=== PATIENT | female | born 1970 | race Caucasian/White ===

== ENCOUNTER 2018-04-23 21:45 | Emergency (ER) | payer OTHER, SELFPAY ==
[2018-04-23 21:50] VITALS: BP 101/41; PULSE 60; RESP 15; TEMP 36.6; O2SAT 98; BMI 26.6
--- NOTE | 2018-04-23 22:18 | DI.CT.S_ITS ---
PROCEDURE: CT ABDOMEN PELVIS W CON INDICATIONS: severe RLQ pain, appy? TECHNIQUE: After the administration of intravenous contrast, 5 mm thick sections acquired from the diaphragm to the symphysis. 5 mm coronal and sagittal reformats were acquired. For radiation dose reduction, the following was used: automated exposure control, adjustment of mA and/or kV according to patient size. COMPARISON: None. FINDINGS: Image quality: Excellent. ABDOMEN: Lung bases: Lung bases are clear. Heart size is normal. Solid organs: Liver is normal in size and enhancement. Gallbladder is normal. Biliary system is non dilated. Pancreas enhances normally. Spleen is normal in size and enhancement. No adrenal nodules. Kidneys demonstrate normal size and enhancement, without hydronephrosis. Peritoneum and bowel: Bowel loops demonstrate normal wall thickness and caliber. Normal appendix. No free fluid or air. Nodes and vessels: No retroperitoneal or mesenteric adenopathy by size criteria. Aorta and inferior vena cava are normal in size. Miscellaneous: No ventral hernias. PELVIS: Genitourinary: Retroverted uterus containing an IUD. Additionally, there is a round enhancing 2 cm mass along the right uterine body consistent with fibroids. A peripherally enhancing 2 cm nodule seen in the right adnexa surrounded by small amount of fluid, likely ruptured right ovarian corpus luteum cyst. The left ovary was not well seen. Miscellaneous: No inguinal hernias or adenopathy. Bones: No suspicious bony lesions. No vertebral body compression fractures. Severe degenerative disc and moderate posterior endplate spurring at the L5-S1 level. IMPRESSION: 1. Probable right ovarian corpus luteum cyst rupture. 2. Retroverted uterus containing an IUD and fibroid change. 3. Normal appendix. 4. Preliminary results are consistent with interpretation. Dictated by: Juliane Quinones M.D. on 04/24/2018 at 7:55 Approved by: Juliane Quinones M.D. on 04/24/2018 at 8:04
[2018-04-23] MEDS: HYDROMORPHONE 1 MG INJ IV (22:31)
[2018-04-23] MEDS: ONDANSETRON 4 MG/2 ML INJ IV (22:31)
[2018-04-23] MEDS: SODIUM CHLORIDE 0.9% 1,000 ML 1000 ML IV (22:32)
[2018-04-23 22:33] LABS: Add Manual Diff / Slide Review NO; Basophils Absolute Auto 100 /uL (0-100); Basophils Percent Auto 1.2 % (0-2); Eosinophils Absolute Auto 200 /uL (0-450); Eosinophils Percent Auto 2.8 % (2-4); Hematocrit 39.4 % (36-46); Hemoglobin 13.3 g/dL (12.0-16.0); Lymphocytes Absolute Auto 2400 /uL (1100-4500); Lymphocytes Percent Auto 33.7 % (25-40); Mean Corpuscular HGB Conc 33.8 % (30-36); Mean Corpuscular Hemoglobin 29.8 PG (26-34); Mean Corpuscular Volume 88.2 fL (80-100); Monocytes Absolute Auto 700 /uL (0-900); Monocytes Percent Auto 10.1 % (3-14); Neutrophils Absolute Auto 3800 /uL (1500-7000); Neutrophils Percent Auto 52.2 % (50-75); Platelet Count 222 X10^3/uL (150-400); Red Blood Cell Count 4.46 X10^6/uL (4.0-5.2); Red Cell Distribution Width 13.2 % (11.6-14.8); White Blood Cell Count 7.2 X10^3/uL (4.5-11.0)
[2018-04-23 22:45] LABS: Alanine Aminotransferase 32 IU/L (9-52); Albumin Globulin Ratio 1.3 (1.0-2.8); Alkaline Phosphatase 87 U/L (38-126); Aspartate Aminotransferase 19 IU/L (14-36); BUN Creatinine Ratio 27.1 (6-22); Bilirubin Total 0.2 mg/dL (0.2-1.3); Blood Urea Nitrogen 19 mg/dL (7-17); Calcium 9.2 mg/dL (8.4-10.2); Carbon Dioxide 25 mmol/L (22-32); Chloride 105 mmol/L (98-107); Estimated Glomerular Filt Rate > 60.0 mL/min (>60); Globulin 3.1 g/dL (1.7-4.1); Glucose 93 mg/dL (70-100); HEMOLYSIS < 15 (0-50); Lipase 112 U/L (23-300); Potassium 4.2 mmol/L (3.4-5.1); Sodium 138 mmol/L (137-145); Total Protein 7.1 g/dL (6.3-8.2)
[2018-04-23 22:47] VITALS: BP 107/59; PULSE 65; RESP 16; O2SAT 94
--- NOTE | 2018-04-23 23:22 | DI.US.S_ITS ---
PROCEDURE: US PELVIC COMPLETE INDICATIONS: ABNORMAL RIGHT OVARY ON CT TECHNIQUE: Real-time scanning was performed of the pelvic organs, with image documentation. Additional endovaginal scanning was necessary due to incomplete visualization of the adnexal and endometrial structures by transabdominal scanning. COMPARISON: [facility], CT, CT ABDOMEN PELVIS W CON, 04/23/2018, 22:24. FINDINGS: Transabdominal scanning: Limited scanning through the kidneys shows no hydronephrosis. No pathologic free abdominal or pelvic fluid. Endovaginal scanning: Uterus: Uterus is normal in size at 9.1 x 5.4 x 6.7 cm. The endometrium measures 3.3 mm in combined thickness. Intrauterine device is appropriately positioned. There is a 2.1 x 1.9 x 2.0 cm right anterior intramural uterine fibroid. Ovaries: Right adnexa measures 3.9 x 1.8 x 1.8 cm. There is a 1.8 x 1.3 x 1.5 complex cyst in the right adnexa may represent an involuting follicle. No vascular flow is associated with the right adnexal cyst. Left adnexa is not visualized and cannot be evaluated. IMPRESSION: 1. Small uterine fibroid. 2. Intrauterine device properly positioned. 3. 1.8 x 1.3 x 1.5 cm partially collapsed right adnexal cyst. 4. Left adnexa not visualized and cannot be evaluated. Dictated by: Darya Tovar MD, PhD on 04/24/2018 at 7:46 Approved by: Darya Tovar MD, PhD on 04/24/2018 at 7:49
--- NOTE | 2018-04-23 23:38 | PC.NURSE ---
Pt feeling much more relaxed,completely pain free at this time.
[2018-04-24] MEDS: HYDROCODONE/ACET 5/325 PREPACK 1 BOTTLE MISC (00:33)
[2018-04-24 00:34] VITALS: BP 104/52; PULSE 59; O2SAT 97
--- NOTE | 2018-04-24 02:41 | ED_ITS ---
HPI - Abdominal Pain General Chief Complaint: Abdominal Pain Stated Complaint: rlq abdominal pain Time Seen by Provider: 04/23/18 21:50 Source: patient and family Mode of arrival: ambulatory Limitations: no limitations History of Present Illness HPI narrative: 47-year-old female nonsmoker with a recent diagnosis of left bundle branch block presents with right lower quadrant pain worsening over the course of the day. She states it started with generalized abdominal discomfort and is settled in severe right quadrant pain which is worse with motion and improves with rest. She denies fever, chills nor nausea or vomiting. She denies any radiation of the pain nor history of the same. She denies any vaginal blee ding or discharge and states her last menstrual period was 2 weeks ago. She denies any injury. Related Data Home Medications Medication Instructions Recorded Confirmed CA PANTOTHENATE/FOLIC ACID/VIT 1 tab PO Q DAY #0 04/06/11 (MULTIVITAMIN) HYDROCODONE/ACET (HYDROCODONE 1 tab PO Q6HP #0 04/06/11 BITARTRATE-ACETAMINOPHEN) [ADDERALL] 20 mg PO Q DAY #0 04/06/11 methocarbamol 500 mg PO PRN #1 06/07/12 Previous Rx's Medication Instructions Recorded sumatriptan succinate [Imitrex] 100 mg PO PRN #30 04/14/11 Allergies Allergy/AdvReac Type Severity Reaction Status Date / Time ciprofloxacin [CIPROFLOXACIN] Allergy Unknown Verified 04/23/18 22:01 minocycline [MINOCYCLINE] Allergy Unknown Verified 04/23/18 22:01 Sulfa (Sulfonamide Allergy Unknown Verified 04/23/18 22:01 Antibiotics) [SULFA (SULFONAMIDE ANTIBIOTICS)] tetracycline [TETRACYCLINE] Allergy Unknown Verified 04/23/18 22:01 Review of Systems Constitutional Denies chills, Denies fever(s), Denies lethargy and Denies weakness Eyes Denies change in vision, Denies eye discharge, Denies irritation and Denies loss of vision ENT Ears, Nose, Mouth, and Throat: Denies change in voice, Denies neck pain and Denies sore throat Cardiovascular Denies chest pain, Denies irregular heart rhythm, Denies lightheadedness, Denies palpitations, Denies dyspnea, Denies dyspnea on exertion and Denies orthopnea Respiratory Denies cough, Denies dyspnea, Denies dyspnea on exertion and Denies wheezing Gastrointestinal Gastrointestinal: Reports abdominal pain, Denies change in bowel habits, Denies diarrhea, Denies nausea and Denies vomiting Genitourinary Denies hematuria, Denies flank pain, Denies urinary incontinence and Denies urinary urgency Musculoskeletal Denies neck pain Integumentary/Breasts Denies pruritus, Denies erythema, Denies rash and Denies wounds Neurologic Denies confusion, Denies loss of vision and Denies weakness Psychiatric Denies anxiety, Denies confusion, Denies depression, Denies homicidal ideation and Denies suicidal ideation Endocrine Denies palpitations Hematologic/Lymphatic Denies easy bruising Allergic/Immunologic Denies wheezing PFSH Surgical History History of knee surgery (Resolved) History of third molar tooth extraction Status post breast reduction (~1991) Social History Smoking Status: Never smoker Social History Smoking Status: Never smoker Exam Narrative Exam Narrative: GENERAL: T 47-year-old female appears younger than stated age in obviously quite uncomfortable, lying on her side with knees pulled her chest HEAD: Atraumatic. Normocephalic. No temporal or scalp tenderness. EYES: Pupils equal round and reactive. Extraocular motions intact. No scleral icterus. No injection or drainage. ENT: Nose without bleeding, purulent drainage or septal hematoma. Throat without erythema, tonsillar hypertrophy or exudate. Uvula midline. Airway patent. NECK: Trachea midline. No JVD or lymphadenopathy. Supple, nontender, no meningeal signs. CARDIOVASCULAR: Regular rate and rhythm without murmurs, gallops, or rubs. RESPIRATORY: Clear to auscultation. Breath sounds equal bilaterally. No wheezes, rales, or rhonchi. GASTROINTESTINAL: Abdomen soft, severe right lower quadrant tenderness with localized peritonitis, nondistended. No hepato-splenomegaly, or palpable masses. No guarding. EXTREMITIES: No clubbing, cyanosis, or edema. No joint tenderness, effusion, or edema noted. BACK: Nontender without deformity or crepitance. No flank tenderness. NEURO: AOx3. SKIN: No rash or erythema. Initial Vital Signs Initial Vital Signs: Vital Signs Temperature 97.9 F 04/23/18 21:50 Pulse Rate 60 04/23/18 21:50 Respiratory Rate 15 04/23/18 21:50 Blood Pressure 101/41 L 04/23/18 21:50 Pulse Oximetry 98 04/23/18 21:50 Course Course Narrative: Patient felt tremendous improvement after 1st round of Dilaudid. Patient had no elevated white count or fever and CT scan shows a normal appendix but a collapsed right ovarian cyst. Pelvic ultrasound confirms this diagnosis. Orders Ordered: ED Orders 04/23/18 22:18 CT abdomen pelvis w con Stat 04/23/18 22:25 Complete Blood Count AUTO DIFF Stat Comprehensive Metabolic Panel Stat Lipase Stat 04/23/18 23:22 US pelvic complete Stat Discontinued Medications Hydrocodone Bitart/Acetaminophen (Vicodin Prepack) 1 bottle MISC SEEINSTR ONE Stop: 04/24/18 00:32 Last Admin: 04/24/18 00:33 Dose: 1 bottle Hydromorphone HCl (Dilaudid) 1 mg IV NOW ONE Stop: 04/23/18 22:15 Last Admin: 04/23/18 22:31 Dose: 1 mg Sodium Chloride (Normal Saline 0.9%) 1,000 mls @ 150 mls/hr IV CONT GODWIN Last Admin: 04/23/18 23:35 Dose: Not Given Sodium Chloride (Normal Saline 0.9%) 1,000 mls @ 1,000 mls/hr IV BOLUS ONE Stop: 04/23/18 23:17 Last Infusion: 04/23/18 23:34 Dose: 0 mls/hr Admin: 04/23/18 22:32 Dose: 1,000 mls/hr Ondansetron HCl (Zofran) 4 mg IV Q4HR PRN PRN Reason: Nausea And Vomiting Last Admin: 04/23/18 22:31 Dose: 4 mg Vital Signs - 8 hr 04/23/18 21:50 04/23/18 22:47 04/24/18 00:34 Temperature 97.9 F Pulse Rate 60 65 59 L Respiratory Rate 15 16 Blood Pressure 101/41 L 104/52 L Blood Pressure [Right Arm] 107/59 L Pulse Oximetry 98 94 97 MDM - Abdominal Pain Lab Data Result diagrams: 04/23/18 22:25 04/23/18 22:25 Lab Results 04/23/18 04/23/18 Range/Units 22:25 22:25 WBC 7.2 (4.5-11.0) X10^3/uL RBC 4.46 (4.0-5.2) X10^6/uL Hgb 13.3 (12.0-16.0) g/dL Hct 39.4 (36-46) % MCV 88.2 (80-100) fL MCH 29.8 (26-34) PG MCHC 33.8 (30-36) % RDW 13.2 (11.6-14.8) % Plt Count 222 (150-400) X10^3/uL Neut % (Auto) 52.2 (50-75) % Lymph % (Auto) 33.7 (25-40) % [place] % (Auto) 10.1 (3-14) % Eos % (Auto) 2.8 (2-4) % Baso % (Auto) 1.2 (0-2) % Neut # (Auto) 3800 (7787-8905) /uL Lymph # (Auto) 2400 (1107-0018) /uL [place] # (Auto) 700 (0-900) /uL Eos # (Auto) 200 (0-450) /uL Baso # (Auto) 100 (0-100) /uL Sodium 138 (137-145) mmol/L Potassium 4.2 (3.4-5.1) mmol/L Chloride 105 (98-107) mmol/L Carbon Dioxide 25 (22-32) mmol/L BUN 19 H (7-17) mg/dL Creatinine 0.70 (0.52-1.04) mg/dL Estimated GFR > 60.0 (>60) mL/min BUN/Creatinine Ratio 27.1 H (6-22) Glucose 93 (70-100) mg/dL Calcium 9.2 (8.4-10.2) mg/dL Total Bilirubin 0.2 (0.2-1.3) mg/dL AST 19 (14-36) IU/L ALT 32 (9-52) IU/L Alkaline Phosphatase 87 (38-126) U/L Total Protein 7.1 (6.3-8.2) g/dL Albumin 4.0 (3.5-5.0) g/dL Globulin 3.1 (1.7-4.1) g/dL Albumin/Globulin Ratio 1.3 (1.0-2.8) Lipase 112 (23-300) U/L Point of care testing: Point of Care Testing Test Results Negative Urine Dip Bedside Urine Glucose Negative Bedside Urine Bilirubin - Negative Bedside Urine Ketone - Negative Urine Specific [place] 1.030 Bedside Urine Occult Blood - Negative Bedside Urine pH 6.0 Bedside Urine Protein +/- 15 Bedside Urine Urobilinogen +/- 1mg Bedside Urine Nitrite - Negative Bedside Urine Leukocytes - Negative Esterase MDM Narrative Medical decision making narrative: Appendicitis was the 1st strong suspicion given patient description and physical exam but lack of fever, elevated white blood cell count and normal appearance on CT make this unlikely but still an early possibility. Ovarian cyst thought most likely diagnosis given patient exam and ultrasound and CAT scan findings. Patient and had questions answered to their apparent satisfaction. They have been given return precautions which they have verbalized understanding of Discharge Plan Departure Patient Disposition: Home Clinical Impression: Ovarian cyst Qualifiers: Laterality: right Qualified Code(s): N83.201 - Unspecified ovarian cyst, right side Discharge Date/Time: 04/24/18 00:34 Interventions: ED Discharge Assessment Last Done: 04/24/18 00:34 Instructions: DI for Ovarian Cyst Activity Restrictions/Additional Instructions: *You have been diagnosed with [ right ovarian cyst] *What to do: *Take medications as directed *Follow up with your primary care provider in 2-3 days, call for an appointment. Let them know you were seen in the Emergency Department and that we ask that you be seen in follow up *Return to ER if you should have any new, worsening or concerning symptoms Prescriptions: No Action CA PANTOTHENATE/FOLIC ACID/VIT (MULTIVITAMIN) 1 tab PO Q DAY Qty: 0 RF: 0 [ADDERALL] 20 mg PO Q DAY Qty: 0 RF: 0 HYDROCODONE/ACET (HYDROCODONE BITARTRATE-ACETAMINOPHEN) 1 tab PO Q6HP Qty: 0 RF: 0 sumatriptan succinate [Imitrex] 100 MG tablet 100 mg PO PRN Qty: 30 RF: 3 methocarbamol 500 MG tablet 500 mg PO PRN Qty: 1 RF: 0 Referrals: Wellington Mcnulty MD [Primary Care Provider] -
== END 2018-04-24 00:34 | disposition home or self-care (01) ==
PROVIDERS: Emergency Provider Emergency Medicine; Family Provider Family Medicine; PCP Family Medicine
DX: N83.201 Unspecified ovarian cyst, right side (principal)
CPT/HCPCS: 36591; 74177; 76830; 76856; 80053; 81003; 81025; 83690; 85025; 96361; 96374; 96375; 99283; 99285; J1170; J2405; Q9967

== ENCOUNTER 2019-02-19 09:37 | Emergency (ER) | payer OTHER, SELFPAY ==
[2019-02-19 09:45] VITALS: BP 124/64; PULSE 67; RESP 22; TEMP 36.8; O2SAT 98; BMI 29.0
--- NOTE | 2019-02-19 09:51 | DI.RAD.S_ITS ---
PROCEDURE: XR CHEST 2V INDICATIONS: cough, crackles TECHNIQUE: 2 views of the chest were acquired. COMPARISON: None. FINDINGS: Surgical changes and devices: None. Lungs and pleura: Lungs are clear. No pleural effusions or pneumothorax. Mediastinum: Mediastinal contours are normal. Heart size is normal. Bones and chest wall: No suspicious bony abnormalities. Soft tissues appear unremarkable. IMPRESSION: No acute cardiopulmonary findings. Dictated by: Lizz Recio M.D. on 02/19/2019 at 9:05 Approved by: Lizz Recio M.D. on 02/19/2019 at 9:05
--- NOTE | 2019-02-19 10:00 | ED.URI ---
HPI - URI/Sore Throat General Chief Complaint: Upper Respiratory Symptoms Stated Complaint: fever/non-prod cough/chills x3 days Time Seen by Provider: 02/19/19 09:57 Source: patient Mode of arrival: Ambulatory Limitations: no limitations History of Present Illness HPI Narrative: He patient is a 48-year-old female who presents with body aches, cough sore throat is chills fever and fatigue ongoing for last 3 days. She did get her flu vaccine. She denies any shortness of breath. She has been able to drink fluids but overall is sleeping the majority per day. She has no not nausea vomiting or abdominal pain. MD Complaint: fever, cough and sore throat Onset (ago): day(s) (3) Severity: moderate Relieving factors: nothing Exacerbating factors: nothing Related Data Home Medications Medication Instructions Recorded Confirmed CA PANTOTHENATE/FOLIC ACID/VIT 1 tab PO Q DAY #0 04/06/11 10/21/18 (MULTIVITAMIN) [ADDERALL] 20 mg PO Q DAY #0 04/06/11 10/21/18 methocarbamol 500 mg PO PRN #1 06/07/12 10/21/18 losartan 25 mg tablet 25 mg PO DAILY 10/21/18 10/21/18 metoprolol succinate 25 mg capsule 25 mg PO DAILY 10/21/18 10/21/18 sprinkle, ext. release 24 hr Previous Rx's Medication Instructions Recorded sumatriptan succinate [Imitrex] 100 mg PO PRN #30 04/14/11 Allergies Allergy/AdvReac Type Severity Reaction Status Date / Time ciprofloxacin [CIPROFLOXACIN] Allergy Unknown Verified 10/21/18 08:04 minocycline [MINOCYCLINE] Allergy Unknown Verified 10/21/18 08:04 Sulfa (Sulfonamide Allergy Unknown Verified 10/21/18 08:04 Antibiotics) [SULFA (SULFONAMIDE ANTIBIOTICS)] tetracycline [TETRACYCLINE] Allergy Unknown Verified 10/21/18 08:04 Review of Systems Review of Systems Narrative: GENERAL: Denies chills, fatigue, malaise, fever, sweats, travel HEENT: See HPI RESPIRATORY: see HPI CARDIOVASCULAR: Denies chest pain, palpitations, orthopnea, edema GASTROINTESTINAL: Denies nausea, vomiting, abdominal pain, diarrhea, constipation, melena. : Denies dysuria, frequency, incontinence, hematuria, urinary retention, flank pain. MUSCULOSKELETAL: Denies weakness, joint pain, or bony pain SKIN: No rash, no erythema, no pruritus NEUROLOGIC: Denies weakness, dizziness, headache, numbness, change in speech, confusion PSYCHIATRIC: No concerning psychosocial issues. 12 point review of systems is negative except for those stated above and HPI Patient History Medical History Left bundle branch block (Acute) Surgical History History of knee surgery (Resolved) History of third molar tooth extraction Status post breast reduction (~1991) Social History Smoking Status: Never smoker Smoking Status: Never smoker alcohol intake frequency: holidays/special occasions only Substance Use Type: does not use Exam Initial Vital Signs Initial Vital Signs: Vital Signs Temperature 98.2 F 02/19/19 09:45 Pulse Rate 67 02/19/19 09:45 Respiratory Rate 22 02/19/19 09:45 Blood Pressure 124/64 02/19/19 09:45 Pulse Oximetry 98 02/19/19 09:45 GENERAL: Alert female appears to not feel A&O x4 and in no acute distress. HEENT: Head atraumatic,EOMI, pupils reactive, face symmetric PHARYNX: No erythema, no tonsillar exudate, no cervical lymphadenopathy CARDIOVASCULAR: Regular rate and rhythm without murmurs, rubs or gallops. RESPIRATORY: Breath sounds equal bilaterally, no wheezes rales or rhonchi. ABDOMEN: Soft, nontender. Normoactive bowel sounds all 4 quadrants. No guarding or rebound. EXTREMITIES: Normal range of motion, no clubbing or edema. Neurovascularly intact NEUROLOGICAL: Alert and oriented x4.Normal gait and speech. SKIN: Warm, dry, no laceration, no petechiae, no rashes or lesions. Course Orders Ordered: ED Orders 02/19/19 09:50 Flu test [Influenza A & B (PCR)] Stat 02/19/19 09:51 XR chest 2V Stat Discontinued Medications Albuterol (Ventolin) 2.5 mg INH NOW ONE Stop: 02/19/19 10:42 Last Admin: 02/19/19 10:52 Dose: 2.5 mg Documented by: JFREELA Vital Signs Vital signs: Vital Signs - 8 hr 02/19/19 09:45 02/19/19 10:52 02/19/19 11:11 Temperature 98.2 F Pulse Rate 67 79 75 Respiratory Rate 22 18 16 Blood Pressure 124/64 108/46 L Pulse Oximetry 98 98 97 [facility] - URI/Sore Throat Lab Data Attestation: I reviewed the patient's lab results. Labs: Lab Results 02/19/19 Range/Units 09:50 Influenza A (RT-PCR) Flu a positive H (NEGATIVE) Influenza B (RT-PCR) Flu b negative (NEGATIVE) Imaging Data Chest x-ray: Radiologist's Impression: PROCEDURE: XR CHEST 2V INDICATIONS: cough, crackles TECHNIQUE: 2 views of the chest were acquired. COMPARISON: None. FINDINGS: Surgical changes and devices: None. Lungs and pleura: Lungs are clear. No pleural effusions or pneumothorax. Mediastinum: Mediastinal contours are normal. Heart size is normal. Bones and chest wall: No suspicious bony abnormalities. Soft tissues appear unremarkable. IMPRESSION: No acute cardiopulmonary findings. Dictated by: Lizz Rceio M.D. on 02/19/2019 at 9:05 [facility] Narrative Medical decision making narrative: Patient did receive her flu shot and is influenza A positive. She has been having symptoms ongoing for 3 days and healthy no indication for Tamiflu at this time. No sign of pneumonia on her x-ray. She was given some albuterol CV help with her cough there was no change. Discussed with her conservative treatment with fluids rest and fever control. Discharge Plan Departure Patient Disposition: Home Clinical Impression: Influenza A Discharge Date/Time: 02/19/19 11:12 Instructions: DI for Influenza -- Adult Activity Restrictions/Additional Instructions: *You have been diagnosed with influenza a *What to do: At this time no medication is indicated. Continue to drink fluids fever control with Tylenol or ibuprofen. This can up to 7 days, but you should start feeling better. *Continue to take medications as directed Ibuprofen 800 mg every 8 hours as needed for fever and body aches Tylenol 1000 mg every 6 hours if needed for fever body *Follow up with your primary care provider in 2-3 days *Return to ER if you should have increasing shortness of breath difficulty breathing, fever not controlled, not tolerating fluids intake [or] any new, worsening or concerning symptoms Prescriptions: No Action CA PANTOTHENATE/FOLIC ACID/VIT (MULTIVITAMIN) 1 tab PO Q DAY Qty: 0 RF: 0 [ADDERALL] 20 mg PO Q DAY Qty: 0 RF: 0 sumatriptan succinate [Imitrex] 100 MG tablet 100 mg PO PRN Qty: 30 RF: 3 methocarbamol 500 MG tablet 500 mg PO PRN Qty: 1 RF: 0 losartan 25 mg tablet 25 mg PO DAILY RF: 0 metoprolol succinate 25 mg bradly delgado,ER 24hr dose pack 25 mg PO DAILY RF: 0 Stand Alone Forms: Work Release Note
[2019-02-19 10:32] LABS: Influenza A - CEPHEID Flu A POSITIVE (NEGATIVE); Influenza B - CEPHEID Flu B NEGATIVE (NEGATIVE)
[2019-02-19 10:52] VITALS: PULSE 79; RESP 18; O2SAT 98
[2019-02-19] MEDS: ALBUTEROL 2.5 MG/3 ML NEB (ADULT) INH (10:52)
[2019-02-19 11:11] VITALS: BP 108/46; PULSE 75; RESP 16; O2SAT 97
== END 2019-02-19 11:12 | disposition home or self-care (01) ==
PROVIDERS: Emergency Provider Emergency Medicine; Family Provider Family Medicine
DX: J10.1 Influenza due to other identified influenza virus with other respiratory manifestations (principal)
CPT/HCPCS: 71046; 87502; 94640; 99282; 99284; J7613

== ENCOUNTER 2020-01-26 08:22 | Emergency (ER) | payer OTHER, SELFPAY ==
--- NOTE | 2020-01-26 08:30 | DI.RAD.S_ITS ---
PROCEDURE: XR CHEST 1V INDICATIONS: chest pain TECHNIQUE: One view of the chest was acquired. COMPARISON: [facility], CR, XR CHEST 2V, 02/19/2019, 9:49. FINDINGS: Surgical changes and devices: None. Lungs and pleura: Lungs are clear. No pleural effusions or pneumothorax. Mediastinum: Mediastinal contours appear normal. Heart size is normal. Bones and chest wall: No suspicious bony lesions. Overlying soft tissues appear unremarkable. IMPRESSION: No acute disease Dictated by: Chaim Wheeler M.D. on 01/26/2020 at 10:16 Approved by: Chaim Wheeler M.D. on 01/26/2020 at 10:17
--- NOTE | 2020-01-26 08:36 | ED.CHESTPAIN ---
HPI - Chest Pain General Chief Complaint: Chest Pain Stated Complaint: chest pain Time Seen by Provider: 01/26/20 08:35 Source: patient Mode of arrival: Ambulatory Limitations: no limitations History of Present Illness HPI narrative: Patient is a 41-year-old female with history left bundle-branch block presenting with 4 days of chest discomfort. She says she only notices it when she is awake it is relatively constant throughout the day nothing makes it better or worse. She does not notice it while sleeping. It is not radiating she denies any shortness of breath but does feel nauseated today. She got out of the shower and just felt like something was not right. MD complaint: chest pain Duration: constant Onset: during rest and during exertion Severity: mild Quality: aching Relieving factors: nothing Exacerbating factors: nothing Related Data Home Medications Medication Instructions Recorded Confirmed CA PANTOTHENATE/FOLIC ACID/VIT 1 tab PO Q DAY #0 04/06/11 01/13/20 (MULTIVITAMIN) methocarbamol 500 mg PO PRN #1 06/07/12 01/13/20 metoprolol succinate 25 mg capsule 25 mg PO DAILY 10/21/18 01/13/20 sprinkle, ext. release 24 hr carvedilol phosphate 10 mg 10 mg PO DAILY 01/06/20 01/13/20 capsule,[id number] multiphase hydrocodone 5 mg-acetaminophen 325 1 tab PO BID PRN 01/06/20 01/13/20 mg tablet Previous Rx's Medication Instructions Recorded sumatriptan succinate [Imitrex] 100 mg PO PRN #30 04/14/11 Allergies Allergy/AdvReac Type Severity Reaction Status Date / Time ciprofloxacin [CIPROFLOXACIN] Allergy Unknown Verified 01/13/20 12:13 minocycline [MINOCYCLINE] Allergy Unknown Verified 01/13/20 12:13 Sulfa (Sulfonamide Allergy Unknown Verified 01/13/20 12:13 Antibiotics) [SULFA (SULFONAMIDE ANTIBIOTICS)] tetracycline [TETRACYCLINE] Allergy Unknown Verified 01/13/20 12:13 Review of Systems Review of Systems Narrative: GENERAL: Denies chills, fatigue, malaise, fever, sweats, travel HEENT: Denies sinus pain, ear pain, sore throat, difficulty swallowing, neck pain RESPIRATORY: Denies dyspnea, cough, wheezing, hemoptysis, sputum. CARDIOVASCULAR: See HPI GASTROINTESTINAL: Denies nausea, vomiting, abdominal pain, diarrhea, constipation, melena. : Denies dysuria, frequency, incontinence, hematuria, urinary retention, flank pain. MUSCULOSKELETAL: Denies weakness, joint pain, or bony pain SKIN: No rash, no erythema, no pruritus NEUROLOGIC: Denies weakness, dizziness, headache, numbness, change in speech, confusion PSYCHIATRIC: No concerning psychosocial issues. 12 point review of systems is negative except for those stated above and HPI Patient History Medical History (Updated 01/26/20 @ 10:14 by Laura Fernandez DO) Left bundle branch block Surgical History History of knee surgery History of third molar tooth extraction Status post breast reduction (~1991) Social History Smoking Status: Never smoker Smoking Status: Never smoker alcohol intake frequency: holidays/special occasions only Substance Use Type: does not use Exam Initial Vital Signs Initial Vital Signs: Vital Signs Pulse Rate 67 01/26/20 08:51 Respiratory Rate 45 H 01/26/20 08:51 Pulse Oximetry 99 01/26/20 08:51 GENERAL: Well-appearing, well-nourished and in no acute distress. HEENT: Head atraumatic,EOMI, pupils reactive, face symmetric, moist mucous membranes CARDIOVASCULAR: Regular rate and rhythm without murmurs, rubs or gallops. RESPIRATORY: Breath sounds equal bilaterally, no wheezes rales or rhonchi. ABDOMEN: Soft, nontender. Normoactive bowel sounds all 4 quadrants. No guarding or rebound. : No CVA tenderness EXTREMITIES: Normal range of motion, no clubbing or edema. Neurovascularly intact NEUROLOGICAL: Alert and oriented x4.Normal gait and speech. SKIN: Warm, dry, no laceration, no petechiae, no rashes or lesions. Scores HEART Score Heart Score history: Slightly Suspicious Heart Score EKG: Non-Specific repolarization disturbance Heart Score Age: 45-64 years old Heart Score risk factors: No known risk factors Heart Score troponin: < or = to normal limit Heart Score Total: 2 Course Orders Ordered: Discontinued Medications Aspirin (Aspirin 81 Mg Chew Tab) 324 mg PO NOW ONE Stop: 01/26/20 08:36 Last Admin: 01/26/20 08:52 Dose: 324 mg Documented by: [facility] - Chest Pain Lab Data Attestation: I reviewed the patient's lab results. Result diagrams: 01/26/20 08:44 01/26/20 08:44 Labs: Lab Results 01/26/20 01/26/20 01/26/20 Range/Units 08:44 08:44 08:44 WBC 9.6 (4.5-11.0) X10^3/uL RBC 4.67 (4.0-5.2) X10^6/uL Hgb 13.8 (12.0-16.0) g/dL Hct 41.2 (36-46) % MCV 88.2 (80-100) fL MCH 29.6 (26-34) PG MCHC 33.5 (30-36) % RDW 13.5 (11.6-14.8) % Plt Count 240 (150-400) X10^3/uL Neut % (Auto) 81.5 H (50-75) % Lymph % (Auto) 11.7 L (25-40) % [place] % (Auto) 5.2 (3-14) % Eos % (Auto) 1.1 L (2-4) % Baso % (Auto) 0.5 (0-2) % Neut # (Auto) 7800 H (7697-2807) /uL Lymph # (Auto) 1100 (2111-6712) /uL [place] # (Auto) 500 (0-900) /uL Eos # (Auto) 100 (0-450) /uL Baso # (Auto) 0 (0-100) /uL PT 12.1 (10.1-12.7) SECONDS INR 1.1 (0.9-1.3) APTT 29 (26.4-36.2) SECONDS Sodium 137 (137-145) mmol/L Potassium 4.3 (3.4-5.1) mmol/L Chloride 105 (98-107) mmol/L Carbon Dioxide 29 (22-32) mmol/L BUN 19 H (7-17) mg/dL Creatinine 0.77 (0.52-1.04) mg/dL Estimated GFR > 60.0 (>60) mL/min BUN/Creatinine Ratio 24.7 H (6-22) Glucose 109 H (70-100) mg/dL Calcium 9.2 (8.4-10.2) mg/dL Total Bilirubin 0.5 (0.2-1.3) mg/dL AST 21 (14-36) IU/L ALT 18 (<35) IU/L Alkaline Phosphatase 85 (38-126) U/L Total Creatine Kinase 29 L (30-135) U/L CK-MB (CK-2) TNP CK-MB (CK-2) Rel Index TNP Troponin I < 0.012 (0.01-0.034) ng/mL NT-Pro-B Natriuret Pep 122 (<125) pg/mL Total Protein 7.6 (6.3-8.2) g/dL Albumin 4.0 (3.5-5.0) g/dL Globulin 3.6 (1.7-4.1) g/dL Albumin/Globulin Ratio 1.1 (1.0-2.8) Lipase 100 (23-300) U/L 01/26/20 Range/Units 08:44 WBC (4.5-11.0) X10^3/uL RBC (4.0-5.2) X10^6/uL Hgb (12.0-16.0) g/dL Hct (36-46) % MCV (80-100) fL MCH (26-34) PG MCHC (30-36) % RDW (11.6-14.8) % Plt Count (150-400) X10^3/uL Neut % (Auto) (50-75) % Lymph % (Auto) (25-40) % [place] % (Auto) (3-14) % Eos % (Auto) (2-4) % Baso % (Auto) (0-2) % Neut # (Auto) (7886-1010) /uL Lymph # (Auto) (1456-3771) /uL [place] # (Auto) (0-900) /uL Eos # (Auto) (0-450) /uL Baso # (Auto) (0-100) /uL PT (10.1-12.7) SECONDS INR (0.9-1.3) APTT (26.4-36.2) SECONDS Sodium (137-145) mmol/L Potassium (3.4-5.1) mmol/L Chloride (98-107) mmol/L Carbon Dioxide (22-32) mmol/L BUN (7-17) mg/dL Creatinine (0.52-1.04) mg/dL Estimated GFR (>60) mL/min BUN/Creatinine Ratio (6-22) Glucose (70-100) mg/dL Calcium (8.4-10.2) mg/dL Total Bilirubin (0.2-1.3) mg/dL AST (14-36) IU/L ALT (<35) IU/L Alkaline Phosphatase (38-126) U/L Total Creatine Kinase (30-135) U/L CK-MB (CK-2) CK-MB (CK-2) Rel Index Troponin I (0.01-0.034) ng/mL NT-Pro-B Natriuret Pep Cancelled (<125) pg/mL Total Protein (6.3-8.2) g/dL Albumin (3.5-5.0) g/dL Globulin (1.7-4.1) g/dL Albumin/Globulin Ratio (1.0-2.8) Lipase (23-300) U/L Imaging Data Chest x-ray: Radiologist's Impression: PROCEDURE: XR CHEST 1V INDICATIONS: chest pain TECHNIQUE: One view of the chest was acquired. COMPARISON: [facility], , XR CHEST 2V, 02/19/2019, 9:49. FINDINGS: Surgical changes and devices: None. Lungs and pleura: Lungs are clear. No pleural effusions or pneumothorax. Mediastinum: Mediastinal contours appear normal. Heart size is normal. Bones and chest wall: No suspicious bony lesions. Overlying soft tissues appear unremarkable. IMPRESSION: No acute disease Dictated by: Chaim Wheeler M.D. on 01/26/2020 at 10:16 ECG Data Attestation: I personally reviewed and interpreted this ECG as follows: Prior ECG tracings: not available for review Interpretation: EKG 1. Normal sinus rhythm rate 67 p.r. interval 134 QRS [address] changes left bundle-branch block noted EKG 2. Sinus rhythm rate [address] changes similar to previous EKG MDM Narrative Medical decision making narrative: The patient's pain has been off and on for the last 4 days she has a known left bundle-branch block. No changes in the 2 EKGs here troponin is negative. To remains chest pain-free in the ED at this time I recommend outpatient follow-up with possible stress testing if needed. I discussed all findings with the patient and , Education has been performed regarding treatment plan, diagnosis, warning signs and symptoms and all concerns have been addressed. Verbally agree with and understood all of the above. Discharge Plan Departure Patient Disposition: Home Clinical Impression: Atypical chest pain Instructions: DI for Atypical Chest Pain Activity Restrictions/Additional Instructions: *You have been diagnosed with atypical chest pain *What to do: At this time it does not appear that your actually having a heart attack. However I recommend following up with her primary care provider, you may require further testing such as a stress test and possible echocardiogram. *Continue to take medications as directed Aspirin 81 mg daily *Follow up with your primary care provider in 2-3 days *Return to ER if you should have worsening chest pain shortness of breath, or any new, worsening or concerning symptoms Prescriptions: No Action CA PANTOTHENATE/FOLIC ACID/VIT (MULTIVITAMIN) 1 tab PO Q DAY Qty: 0 RF: 0 sumatriptan succinate [Imitrex] 100 MG tablet 100 mg PO PRN Qty: 30 RF: 3 methocarbamol 500 MG tablet 500 mg PO PRN Qty: 1 RF: 0 carvedilol phosphate 10 mg capsule, ER multiphase 24 hr 10 mg PO DAILY RF: 0 hydrocodone-acetaminophen [Lorcet (hydrocodone)] 5-325 mg tablet 1 tab PO BID PRNRF: 0 metoprolol succinate 25 mg cap,sprinkle,ER 24hr dose pack 25 mg PO DAILY RF: 0 Referrals: Lizzie Bernabe MD [Primary Care Provider] -
[2020-01-26 08:51] VITALS: PULSE 67; RESP 45; O2SAT 99
[2020-01-26] MEDS: ASPIRIN 81 MG CHEW TAB 324 MG PO (08:52)
[2020-01-26 08:54] VITALS: BP 122/74; PULSE 70; RESP 16; TEMP 37.1; O2SAT 99; BMI 27.3
[2020-01-26 08:54] LABS: Add Manual Diff / Slide Review NO; Basophils Absolute Auto 0 /uL (0-100); Basophils Percent Auto 0.5 % (0-2); Eosinophils Absolute Auto 100 /uL (0-450); Eosinophils Percent Auto 1.1 % (2-4); Hematocrit 41.2 % (36-46); Hemoglobin 13.8 g/dL (12.0-16.0); Lymphocytes Absolute Auto 1100 /uL (1100-4500); Lymphocytes Percent Auto 11.7 % (25-40); Mean Corpuscular HGB Conc 33.5 % (30-36); Mean Corpuscular Hemoglobin 29.6 PG (26-34); Mean Corpuscular Volume 88.2 fL (80-100); Monocytes Absolute Auto 500 /uL (0-900); Monocytes Percent Auto 5.2 % (3-14); Neutrophils Absolute Auto 7800 /uL (1500-7000); Neutrophils Percent Auto 81.5 % (50-75); Platelet Count 240 X10^3/uL (150-400); Red Blood Cell Count 4.67 X10^6/uL (4.0-5.2); Red Cell Distribution Width 13.5 % (11.6-14.8); White Blood Cell Count 9.6 X10^3/uL (4.5-11.0)
[2020-01-26 09:00] VITALS: BP 113/85; PULSE 67; RESP 54; O2SAT 98
[2020-01-26 09:03] LABS: INR 1.1 (0.9-1.3); Prothrombin Time 12.1 SECONDS (10.1-12.7)
[2020-01-26 09:05] LABS: PTT Partial Thromboplastin Tim 29 SECONDS (26.4-36.2)
[2020-01-26 09:10] LABS: Alanine Aminotransferase 18 IU/L (<35); Albumin Globulin Ratio 1.1 (1.0-2.8); Alkaline Phosphatase 85 U/L (38-126); Aspartate Aminotransferase 21 IU/L (14-36); BUN Creatinine Ratio 24.7 (6-22); Bilirubin Total 0.5 mg/dL (0.2-1.3); Blood Urea Nitrogen 19 mg/dL (7-17); Calcium 9.2 mg/dL (8.4-10.2); Carbon Dioxide 29 mmol/L (22-32); Chloride 105 mmol/L (98-107); Creatine Kinase 29 U/L (30-135); Estimated Glomerular Filt Rate > 60.0 mL/min (>60); Globulin 3.6 g/dL (1.7-4.1); Glucose 109 mg/dL (70-100); HEMOLYSIS < 15 (0-50); Lipase 100 U/L (23-300); Potassium 4.3 mmol/L (3.4-5.1); Sodium 137 mmol/L (137-145); Total Protein 7.6 g/dL (6.3-8.2)
[2020-01-26 09:21] LABS: NT-proBNP (BNP-Adult 18+) 122 pg/mL (<125); Troponin I < 0.012 ng/mL (0.01-0.034)
[2020-01-26 09:39] VITALS: PULSE 70; O2SAT 91
[2020-01-26 10:00] VITALS: PULSE 69; RESP 16; O2SAT 98
== END 2020-01-26 10:23 | disposition home or self-care (01) ==
PROVIDERS: Emergency Provider Emergency Medicine; Family Provider Family Medicine; PCP Internal Medicine Geriatric Medicine
DX: R07.89 Other chest pain (principal)
CPT/HCPCS: 36415; 71045; 80053; 82550; 83690; 83880; 84484; 85025; 85610; 85730; 93005; 93010; 99283; 99284

== ENCOUNTER → 2020-03-08 17:14 | Outpatient (CLI) | payer OTHER, SELFPAY ==
[2020-03-08 17:45] LABS: Add Manual Diff / Slide Review NO; Basophils Absolute Auto 0 /uL (0-100); Basophils Percent Auto 0.5 % (0-2); Eosinophils Absolute Auto 200 /uL (0-450); Eosinophils Percent Auto 2.9 % (2-4); Hematocrit 39.4 % (36-46); Lymphocytes Absolute Auto 2000 /uL (1100-4500); Lymphocytes Percent Auto 33.5 % (25-40); Mean Corpuscular HGB Conc 32.9 % (30-36); Mean Corpuscular Volume 88.2 fL (80-100); Monocytes Absolute Auto 500 /uL (0-900); Monocytes Percent Auto 8.2 % (3-14); Neutrophils Absolute Auto 3200 /uL (1500-7000); Neutrophils Percent Auto 54.9 % (50-75); Platelet Count 216 X10^3/uL (150-400); Red Blood Cell Count 4.47 X10^6/uL (4.0-5.2); Red Cell Distribution Width 13.3 % (11.6-14.8); White Blood Cell Count 5.9 X10^3/uL (4.5-11.0)
[2020-03-08 17:53] LABS: HEMOLYSIS < 15 (0-50); Iron 56 ug/dL (37-170)
[2020-03-08 18:07] LABS: Percent Iron Saturation 19 % (15-50); Total Iron Binding Capacity 295 ug/dL (265-497); Transferrin 214 mg/dL (206-381)
[2020-03-08 18:09] LABS: Free T4, Direct Thyroxine 1.05 ng/dL (0.78-2.19)
[2020-03-08 18:23] LABS: Thyroid Stimulating Hormone 1.78 uIU/mL (0.47-4.68)
[2020-03-09 17:24] LABS: Follicle Stimulating Hormone 6.87 mIU/mL
[2020-03-13 08:59] LABS: Percent Free Testosterone 2.57 % (0.50-2.80); Testosterone Free 0.17 ng/dL (0.10-0.85); Testosterone Total 6.5 ng/dL (.)
== END ==
PROVIDERS: Family Provider Family Medicine; PCP Internal Medicine Geriatric Medicine; Referring Provider Obstetrics & Gynecology; Visit Provider Obstetrics & Gynecology
DX: R53.83 Other fatigue (principal)
CPT/HCPCS: 36415; 83001; 83540; 83550; 84402; 84403; 84439; 84443; 85025

== ENCOUNTER → 2020-11-15 10:42 | Outpatient (CLI) | payer OTHER, SELFPAY ==
[2020-11-15 12:05] LABS: COVID19 -Nasal RAPID Negative (Negative)
== END ==
PROVIDERS: Family Provider Family Medicine; PCP Internal Medicine Geriatric Medicine; Visit Provider Obstetrics & Gynecology
DX: Z01.812 Encounter for preprocedural laboratory examination (principal); Z20.822 Contact with and (suspected) exposure to COVID-19
CPT/HCPCS: 87635

== ENCOUNTER 2020-11-16 07:51 | Day surgery (SDC) | payer OTHER, SELFPAY ==
[2020-11-12 13:50] VITALS: BMI 27.6
[2020-11-16] VITALS (16 sets, daily range): BP systolic 90–121; BP diastolic 34–75; PULSE 54–86; RESP 9–18; TEMP 36.1–36.8; O2SAT 89–100; BMI 27.6
--- NOTE | 2020-11-16 | PATH_ITS ---
[facility] Accession Number: [id number] . 01 Material submitted: . uterus - UTERUS AND BILATERAL FALLOPIAN TUBES AND BILATERAL OVARIES . 02 Diagnosis: Uterus and Bilateral Fallopian Tubes and Bilateral Ovaries, Laparoscopic Assisted Vaginal Hysterectomy with Bilateral Salpingectomy (Weight 175 grams): Cervix with focal cytologic atypia suggestive of, but not diagnostic of, low-grade squamous intraepithelial lesion / YASMIN-1 involves a cyst lining; negative for high grade dysplasia or malignancy. Endocervix with prominent Nabothian gland cysts, rare regions of calcification and hemorrhage, suggestive of possible previous instrumentation; negative for glandular dysplasia or malignancy. Weakly proliferative endometrium with a T-shaped IUD by gross examination. Myometrium with an intramural leiomyoma (2.5 cm, posterior uterine wall). Uterine serosa with no significant histomorphologic abnormality. Right and left ovaries with benign luteal cysts (2-18 mm). Right and left fallopian tubes with scattered benign paratubal cysts (1-3 mm). [facility] 11/23/2020 1312 Local . 02 Electronically signed: . Meka Batres MD, Pathologist NPI- [id number] . 01 Gross description: . The specimen is received in formalin, labeled uterus, bilateral fallopian tubes and bilateral ovaries and consists of a 175-gram uterus, cervix, bilateral ovaries and fallopian tubes. The specimen measures 10.1 cm from superior fundus to cervix by 7.0 cm from cornu to cornu by 5.0 cm from anterior to posterior. The serosa is cadena-pink and smooth. The cadena, smooth ectocervix measures 4.0 x 3.2 cm and there is a 1.0 x 0.2 cm os. The specimen is bivalved to reveal a cadena-pink herringbone and focally cystic endocervix. The endometrial cavity measures 4.0 x 2.0 cm and displays a pink-red hemorrhagic endometrium measuring 0.1 cm in thickness. The myometrium is cadena-pink and trabeculated, measuring 2.3 cm in thickness. There is a 2.5 x 2.0 x 2.0 cm cadena-white whorled leiomyoma within the posterior uterus with no areas of hemorrhage, necrosis or cystic degeneration. There is a 3.5 x 3.0 x 0.3 cm T-shaped cadena IUD in place in the endometrium. The right ovary measures 2.5 x 2.0 x 1.2 cm and the left ovary measures 3.5 x 2.2 x 2.0 cm. The external surface is cadena and cerebriform. Sectioning reveals multiple cadena-pink smooth-walled cysts ranging from 0.2-1.8 cm. No papillary excrescences are identified. The right fallopian tube measures 5.0 cm in length by 1.0 cm in diameter and the left fallopian tube measures 4.8 cm in length by 1.1 cm in diameter. The serosa is red-brown and smooth with multiple paratubal cysts ranging from 0.1-0.3 cm. Sectioning reveals a cadena-pink mucosa and a stellate lumen measuring 0.3 cm in diameter. Tub Mender sections are submitted. . A1: Anterior cervix. A2: Posterior cervix. A3-A4: Anterior uterus. A5-A7: Posterior uterus, to include account development representative leiomyoma. A8-A9: Right fallopian tube, account development representative cross sections and bisected fimbria. A10: Tub Mender left ovary. A11 : Left fallopian tube, account development representative cross sections and bisected fimbria. A12 : Tub Mender right ovary. ([id number]) . . /MRV 11/18/2020 1235 Local . 02 Pathologist provided ICD-10: R10.2, D25.9, N93.0 . 02 CPT . 560809 Performed at: 01 [facility] [address] [place] [address], [place], [place] [id number] MD Jose L Banks MD Phone: [phone] Performed at: 02 [facility] [place] [address] [place], [place] [id number] MD Anny Walters MD Phone: [phone]
[2020-11-16] MEDS: LACTATED RINGERS 1,000 ML 100 ML IV ×4 (08:25→18:43)
--- NOTE | 2020-11-16 09:38 | PM.PREOP ---
Pre-operative Note COVID-19 COVID-19 status: Negative Result date/Date tested (Pos, Neg/Pending): 11/15/20 Interval Note History & Physical reviewed/Exam performed by Physician: Yes Changes to H&P: No H&P completed within 30 days and has changed as indicated here:: 11/15/20
--- NOTE | 2020-11-16 10:09 | SUR.OPER ---
Lithotomy on padded OR bed. Hewlett Pad Positioner under torso. Head on pillow, arms padded and tucked at sides. Legs secured in padded yellow fins stirrups.
[2020-11-16] MEDS: CEFAZOLIN 1 GM VIAL 2 GM IV (10:18)
[2020-11-16] MEDS: BUPIVACAINE 0.5% (PF) VIAL 30 ML INJ (10:45)
[2020-11-16] MEDS: EPINEPHrine 1 MG/ML 0.15 MG INJ (10:46)
--- NOTE | 2020-11-16 11:40 | P.OP_ITS ---
Operative Date/Time/Diagnoses Date of procedure: 11/16/20 Time of procedure: 11:40 Pre-op diagnosis: Dyspareunia Bleeding after intercourse Postcoital bleeding Post-op diagnosis: same Procedure & Clinicians Procedure: Procedures Operation Date: 11/16/20 09:15 Actual Procedure Side Surgeon p Laparoscopic Assisted Vag Hysterectomy w. bilateral salpingectomy & bilateral oophorectomies Not Applicable Juani Barton MD Indications: Postcoital bleeding Pelvic pain Dyspareunia Surgeon: Juani Barton Compliance Nurse: Neel Henry Anesthesia Type: General and Local Operative Notes Findings: 9 week size anteverted uterus Normal tubes and ovaries Second-degree uterine prolapse Normal appendix, liver, and gallbladder Closure Type: primary Specimen(s): left tube & ovary, right tube & ovary and uterus Applied: catheter (To continuous drainage) and other (Vaginal pack) Estimated blood loss (mL): 20 Blood products transfused: none Procedure in detail: The patient was taken to the operating room where she was placed in the dorsal supine position. After adequate general endotracheal anesthesia was achieved, she was placed in the dorsal lithotomy position, and prepped and draped in the usual sterile fashion. A timeout was performed. A bivalve speculum was placed into the vagina, and a single-tooth tenaculum was placed on the anterior lip of the cervix. The cervical os was sequentially dilated until the ZUMI uterine manipulator could pass easily into the endometrial cavity. The single-tooth tenaculum was removed from the anterior lip of the cervix, and the bivalve speculum was removed from the vagina. Attention was then turned to the abdomen where 6 mL of half percent Marcaine with epinephrine were injected in the umbilical fold. A 5 mm incision was made. The Verees needle was placed into the peritoneal cavity, and its placement confirmed by aspiration and drop test. The abdominal cavity was insufflated with 4 L of CO2. The Verees needle was removed, and a 5 mm trocar was placed without difficulty. Initial inspection of the pelvis revealed the findings noted above. 2 other incisions were made midway between the pubic symphysis and umbilicus 4 cm lateral to the midline. These were 5 mm incisions. Two 5 mm trochars were placed under direct visualization. The right tube and ovary were grasped with an atraumatic grasper. The infundibulopelvic ligament on the right side was cauterized and cut with plasma kinetic. The round ligament and broad ligament were cauterized and cut. This was continued to the level of the uterine arteries. This was repeated on the patient's left side. The instruments were removed from the abdomen. The abdominal field was covered with sterile towels. Attention was then turned to the vagina where the ZUMI uterine manipulator was removed from the uterus. The cervix was grasped with a 4 tooth tenaculum. 10 mL of quarter percent Marcaine with epinephrine were injected circumferentially around the cervix. The cervix was circumscribed. The bladder and rectum were dissected off the lower uterine segment and cervix with an open moistened Ray-Brady. The peritoneum was entered sharply with the Metzenbaum scissors anteriorly and a Od[place] placed. The peritoneum was entered posteriorly with the Metzenbaum scissors and the long weighted speculum was placed into the posterior cul-de-sac. The uterosacral cardinal ligament complexes were clamped, transected, and suture ligated with 0 Vicryl. These were attached to hemostat. The uterine arteries were clamped, transected, and suture ligated with 0 Vicryl. The uterus was handed off for specimen with the tubes. The peritoneum was closed with a pursestring suture with 2-0 Vicryl. The vaginal cuff was closed with 0 Vicryl with a series of simple interrupted sutures. The tagged sutures were cut. Gloves were changed and attention was turned back to the abdomen. The abdominal cavity was re-insufflated with 3.2 L of CO2. Initial inspection with the health plan manager scope revealed no bleeding in the pelvis. The instruments were removed from the abdomen. The CO2 was allowed to escape. The incisions were repaired with 4-0 Monocryl in a subcuticular fashion. Steri-Strips and Allevyn dressings were placed. Attention was then turned to the vagina where a Betadine moistened vaginal pack was placed into the vagina. Sponge, lap, and instrument counts were correct x2. The patient tolerated the procedure well, and was taken to PACU in stable condition Complications: none Post-operative Condition: stable Disposition: PACU Plan for aftercare: To acute care after recovery
--- NOTE | 2020-11-16 12:10 | SUR.PHASEI ---
Dr Beckett at bedside. Updated on patient complaint of cramping.' See new order for Toradol.
--- NOTE | 2020-11-16 12:10 | SUR.PHASEI ---
Patient admited to PACU after General anesth with Dr Beckett and Clarice RN at 1142. Pt breathing unassisted. SBAR report at bedside.
[2020-11-16] MEDS: fentaNYL 100 MCG/2 ML INJ IV ×3 (12:17→12:36)
[2020-11-16] MEDS: KETOROLAC 30 MG/ML VIAL IV ×2 (12:21→18:43)
[2020-11-16] MEDS: ACETAMINOPHEN 325 MG TABLET 650 MG PO ×3 (12:36→21:03)
[2020-11-16] MEDS: OXYCODONE IR 5 MG TABLET PO ×4 (12:39→21:17)
--- NOTE | 2020-11-16 13:00 | SUR.PHASEI ---
Patient transferred to room 210 bynicki Tapia Rn in bed. Pt transferred with belongings. Denies pain at this time. Servin draining well.
[2020-11-16] MEDS: estradioL 1 MG TABLET PO (14:30)
--- NOTE | 2020-11-16 14:42 | PC.NURSE ---
Pt arrived from PACU at 1307, lethargic easily awakened, pleasant, denies pain. Lap sites x3 to abdomen C/D/I. Vaginaly packing gauze blood tinged. Maxi pad dry.VSS, afebrile on RA. ( Per baseline slightly tena 57 BPM). Pt LS CTA, hypoactive BS. Pt with Servin intact draining clear, yellow, urine. LR @100ml/hr. Tolerating jello and pudding, denies n/v. at bedside supportive. Continuous monitoring
[2020-11-16] MEDS: DOCUSATE 100 MG CAPSULE 200 MG PO (21:03)
[2020-11-16] MEDS: LOSARTAN 25 MG TABLET PO (21:03)
[2020-11-17 00:25] VITALS: BP 104/57; PULSE 60; RESP 16; TEMP 36.5; O2SAT 99
[2020-11-17] MEDS: KETOROLAC 30 MG/ML VIAL IV ×2 (00:37→06:40)
[2020-11-17] MEDS: OXYCODONE IR 5 MG TABLET PO ×4 (00:37→09:31)
--- NOTE | 2020-11-17 03:10 | PC.NURSE ---
Addendum entered by Kelly Rivera R.N. 11/17/20 06:18: Order to DC catheter this a.m. but still with vaginal packing. Dr Machado contacted and order received to remove packing. Both packing and catheter d'cd. Instructed in sx/prevention of UTI. Instructed to call for assistance when needing to get out of bed. Poonam-pad changed. Original Note: Patient is alert and oriented. Breath sounds CTA with RA sat of 94%. HRR. Denied nausea. BT present and is passing flatus. Indwelling catheter is patent; urine is clear, pale yellow. Is able to move herself in bed. Gait not assessed as not out of bed at this time. Allevyn dressings to abdomen are CDI. Wearing poonam-pad and has brownish red drainage on pad/vaginal packing. States she is having crampy type pain and was medicated at 0037 with oxycodone and scheduled Toradol and now states pain is 5/10 and requests Tylenol now and wants oxycodone when she can next have it at 0337; warm blanket applied for additional pain relief. Fall risk score is moderate but patient calls appropriately and verbalizes not to get out of bed without assistance. Wearing bilateral calf SCD's. Spouse rooming in.
[2020-11-17] MEDS: LACTATED RINGERS 1,000 ML 100 ML IV (03:13)
[2020-11-17] MEDS: ACETAMINOPHEN 325 MG TABLET 650 MG PO ×2 (03:14→09:31)
[2020-11-17 04:27] VITALS: BP 114/66; PULSE 59; RESP 16; TEMP 36.6; O2SAT 98
[2020-11-17 06:23] LABS: Add Manual Diff / Slide Review NO; Basophils Absolute Auto 0 /uL (0-100); Basophils Percent Auto 0.2 % (0-2); Eosinophils Absolute Auto 0 /uL (0-450); Eosinophils Percent Auto 0.2 % (2-4); Hematocrit 36.4 % (36-46); Hemoglobin 12.1 g/dL (12.0-16.0); Lymphocytes Absolute Auto 1500 /uL (1100-4500); Lymphocytes Percent Auto 14.1 % (25-40); Mean Corpuscular HGB Conc 33.3 % (30-36); Mean Corpuscular Hemoglobin 29.5 PG (26-34); Mean Corpuscular Volume 88.7 fL (80-100); Monocytes Absolute Auto 700 /uL (0-900); Monocytes Percent Auto 6.5 % (3-14); Neutrophils Absolute Auto 8600 /uL (1500-7000); Platelet Count 194 X10^3/uL (150-400); Red Cell Distribution Width 13.4 % (11.6-14.8); White Blood Cell Count 10.9 X10^3/uL (4.5-11.0)
[2020-11-17 09:00] VITALS: BP 113/66; PULSE 68; RESP 16; TEMP 36.7; O2SAT 100
[2020-11-17] MEDS: DOCUSATE 100 MG CAPSULE 200 MG PO (09:31)
--- NOTE | 2020-11-17 10:38 | PC.NURSE ---
Discharge: Pt feels ready to d/c to home. Able to tolerate diet w/out problems, Up and walking in room w/out diff. Servin out and has voided. Spouse has picked up script from pharmacy. Po pain meds have been effective. Reviewed d/c packet. Questions answered. Pt d/c home via auto w/spouse.
== END 2020-11-17 10:10 | disposition home or self-care (01) ==
LOC: OR 07:57 → AC 11:43
PROVIDERS: Family Provider Family Medicine; PCP Internal Medicine Geriatric Medicine; Referring Provider Obstetrics & Gynecology; Visit Provider Obstetrics & Gynecology
PROC: 0UT9FZZ Resection of Uterus, Via Natural or Artificial Opening With Percutaneous Endoscopic Assistance (ICD-10-PCS; CPT 58552; principal; 2020-11-16 09:15)
DX: D25.1 Intramural leiomyoma of uterus (principal); N83.12 Corpus luteum cyst of left ovary; N83.11 Corpus luteum cyst of right ovary; N83.8 Other noninflammatory disorders of ovary, fallopian tube and broad ligament; N88.8 Other specified noninflammatory disorders of cervix uteri
CPT/HCPCS: 58552; 36415; 81025; 85025; J0171; J0690; J1100; J1885; J2250; J2405; J2704; J3010

== ENCOUNTER → 2021-06-01 08:54 | Outpatient (CLI) | payer OTHER, SELFPAY ==
[2020-11-16 13:44] VITALS: BMI 27.6
[2021-06-01 09:55] LABS: BUN Creatinine Ratio 26.3 (6-22); Blood Urea Nitrogen 20 mg/dL (7-17); Calcium 9.3 mg/dL (8.4-10.2); Carbon Dioxide 29 mmol/L (22-32); Chloride 104 mmol/L (98-107); Estimated Glomerular Filt Rate > 60.0 mL/min (>60); Glucose 98 mg/dL (70-100); HEMOLYSIS < 15 (0-50); Potassium 4.4 mmol/L (3.4-5.1); Sodium 139 mmol/L (137-145)
== END ==
PROVIDERS: Family Provider Family Medicine; PCP Internal Medicine Geriatric Medicine; Referring Provider Internal Medicine Cardiovascular Disease; Visit Provider Internal Medicine Cardiovascular Disease
DX: I49.3 Ventricular premature depolarization (principal); I42.8 Other cardiomyopathies
CPT/HCPCS: 36415; 80048

== ENCOUNTER 2023-10-06 18:52 | Emergency (ER) | payer OTHER, SELFPAY ==
[2020-11-16 13:44] VITALS: BMI 27.6
[2023-10-06 18:58] VITALS: BP 130/60; PULSE 73; RESP 16; TEMP 36.9; O2SAT 100; BMI 28.1
--- NOTE | 2023-10-06 19:14 | ED.ALLEREA ---
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 Specifically she denied any cough shortness of breath, abdominal discomfort. She took Zyrtec antihistamine this morning, improved swelling, was interested in having addition of steroids. She had no trouble breathing. She had no swelling of her lips or tongue. She had no urticarial rash to upper extremities or to lower extremities. No abdominal pain or nausea or vomiting or diarrhea. There are no new pets in the place that she is staying. Related Data Home Medications Medication Instructions Recorded Confirmed multivitamin 1 cap PO DAILY ##0 04/06/11 01/06/21 methocarbamol 500 mg tablet 500 mg PO PRN ##1 06/07/12 01/06/21 carvedilol phosphate 10 mg 10 mg PO BEDTIME 01/06/20 01/06/21 capsule,[id number] multiphase losartan 25 mg tablet 25 mg PO BEDTIME 03/08/20 01/06/21 diphenhydramine HCl 25 mg capsule 25 mg PO BEDTIME PRN Rash 11/15/20 01/06/21 (Benadryl) Previous Rx's Medication Instructions Recorded sumatriptan succinate 100 mg 100 mg PO PRN ##30 04/14/11 tablet (Imitrex) diazepam 5 mg tablet (Valium) 5 mg PO ONCE PRN anxiety #2 tabs 11/15/20 estradiol 0.5 mg tablet 0.75 mg (1.5 x 0.5 mg) PO DAILY 07/19/21 #135 tabs CMP Testoserone cream 2mg See Rx Instructions .Route 05/24/22 .COMPLEX #30 grams epinephrine 0.3 mg/0.3 mL 0.3 mg (0.3 mL) IM Q4H PRN 10/06/23 injection, auto-injector anaphylaxis #2 applic prednisone 20 mg tablet 40 mg (2 x 20 mg) PO DAILY 5 days 10/06/23 #10 tabs Allergies Allergy/AdvReac Type Severity Reaction Status Date / Time ciprofloxacin [CIPROFLOXACIN] AdvReac Unknown Hives Verified 10/06/23 18:58 Sulfa (Sulfonamide AdvReac Unknown Hives Verified 10/06/23 18:58 Antibiotics) [SULFA (SULFONAMIDE ANTIBIOTICS)] Review of Systems Review of Systems Narrative: see HPI Patient History Medical History (Updated 10/06/23 @ 19:34 by Rene Lucas MD) Left bundle branch block Surgical History History of knee surgery Status post breast reduction (~1991) History of third molar tooth extraction Social History household members: spouse Smoking Status: Never smoker alcohol intake: current Smoking Status: Never smoker alcohol intake frequency: holidays/special occasions only Substance Use Type: does not use Exam Narrative Exam Narrative: GENERAL: Well-developed patient, in mild distress. HEAD: Atraumatic. Normocephalic. EYES: Pupils equal round and reactive. Extraocular motions intact. No scleral icterus. No injection or drainage. No particular edema to eyelids or face now, although there seemed to be on self E photo she produced from earlier this morning before she took antihistamine dose. No tongue swelling. No lip swelling. No urticaria or erythema. Sclerae were noninjected. ENT: Nose without bleeding, purulent drainage. Throat without erythema, tonsillar hypertrophy or exudate. Airway patent. NECK: Trachea midline. Non tender CARDIOVASCULAR: Regular rate and rhythm without murmurs, gallops, or rubs. RESPIRATORY: Clear to auscultation. Breath sounds equal bilaterally. No wheezes, rales, or rhonchi. GASTROINTESTINAL: Abdomen soft, non-tender, nondistended. EXTREMITIES: No edema or joint tenderness. BACK: Nontender without deformity or crepitance. No flank tenderness. NEURO: AOx3. Grossly nonfocal motor exam, clear speech, pupils round equal, conjugate gaze SKIN: No rash or erythema of visible areas Initial Vital Signs Initial Vital Signs: Vital Signs Temperature 98.5 F 10/06/23 18:58 Pulse Rate 73 10/06/23 18:58 Respiratory Rate 16 10/06/23 18:58 Blood Pressure 130/60 10/06/23 18:58 Pulse Oximetry 100 10/06/23 18:58 Oxygen Delivery Method Room Air 10/06/23 18:58 Course Orders Ordered: Discontinued Medications Prednisone (Prednisone 20 Mg Tablet) 60 mg PO NOW ONE Stop: 10/06/23 19:25 Last Admin: 10/06/23 19:32 Dose: 60 mg Documented By: AB Vital Signs Vital signs: Vital Signs - 8 hr 10/06/23 18:58 Temperature 98.5 F Pulse Rate 73 Respiratory Rate 16 Blood Pressure 130/60 Pulse Oximetry 100 Oxygen Delivery Method Room Air MDM - Allergic Reaction MDM Narrative Medical decision making narrative: Suspected allergic reaction, involving upper eyelids and lower eyelids, and anterior face, of unclear cause, no obvious new exposures topically or systemically. No environmental exposures specifically known. Some response based on review of her symptoms and her cell phone selfie from this morning, there is significant improvement in periorbital edema both sides after self administered Zyrtec dose. She has a former EMT, we would like to additionally have steroids, p.o. prednisone dose now, prescription sent to her pharmacy. Continue to take Zyrtec for the next few days as well, if this is not a chronic medication. Prednisone steroid for the next few days. Careful not to apply new agents to face or hair, though no new culprit substances thus far identified. Could consider waiter/waitress testing in follow up if this is a recurring problem. Stable, discharged home, return precautions discussed Discharge Plan Departure Patient Disposition: Home Clinical Impression: Allergic reaction, Facial swelling, Periorbital swelling Activity Restrictions/Additional Instructions: Swelling and itching to upper and lower eyelids both sides, onset yesterday, also with swelling symptoms to bilateral face, unclear cause. No obvious topical or systemic or environmental exposures on review of various possibilities. Some improvement in symptoms compared to sulfa photograph taken this morning, after self administered Zyrtec antihistamine dose. Interested in addition of systemic steroids. Oral prednisone steroid given in the emergency department, prescription sent to pharmacy for further steroids next few days. Please also do continue taking antihistamine to suppress reaction next few days as well. If this is a recurring problem, of unclear cause, you could consider waiter/waitress referral to undergo testing, hopefully this is just a 1 off event and not to be repeated. Return earlier if any change worsening symptoms or any concerns prior EpiPen prescription also sent to your pharmacy, if you should want to have this filled and available for future allergic reactions that are more severe in perhaps not responding to antihistamines in the future Prescriptions: New prednisone 20 mg tablet 40 mg PO DAILY 5 Days Qty: 10 0RF epinephrine 0.3 mg/0.3 mL auto-injector 0.3 mg IM Q4H PRN (Reason: anaphylaxis) Qty: 2 0RF No Action multivitamin Capsule 1 cap PO DAILY Qty: 0 sumatriptan succinate [Imitrex] 100 MG tablet 100 mg PO PRN Qty: 30 3RF methocarbamol 500 MG tablet 500 mg PO PRN Qty: 1 estradiol 0.5 mg tablet 0.75 mg PO DAILY Qty: 135 3RF CMP Testoserone cream 2mg See Rx Instructions .ROUTE .COMPLEX Qty: 30 5RF Rx Instructions: Apply once daily to rotating sites, 30 day supply; carvedilol phosphate 10 mg capsule, ER multiphase 24 hr 10 mg PO BEDTIME Rx Instructions: must administer with a meal/food losartan 25 mg tablet 25 mg PO BEDTIME diazepam [Valium] 5 mg tablet 5 mg PO ONCE PRN (Reason: anxiety) Qty: 2 0RF Rx Instructions: Take 1 tab night before surgery and 1 tab the morning of surgery diphenhydramine HCl [Benadryl] 25 mg Capsule 25 mg PO BEDTIME PRN (Reason: Rash) Referrals: Lizzie Bernabe MD [Primary Care Provider] - Stand Alone Forms: Patient Portal/API
[2023-10-06] MEDS: predniSONE 20 MG TABLET 60 MG PO (19:32)
== END 2023-10-06 19:41 | disposition home or self-care (01) ==
PROVIDERS: Emergency Provider Emergency Medicine; Family Provider Family Medicine; PCP Internal Medicine Geriatric Medicine
DX: T78.40XA Allergy, unspecified, initial encounter (principal); R22.0 Localized swelling, mass and lump, head; H57.89 Other specified disorders of eye and adnexa
CPT/HCPCS: 99283